=== PATIENT | male | born 1995 ===

== ENCOUNTER 2018-03-02 21:10 | Emergency (ER) | payer SELFPAY ==
[2018-03-02] MEDS ORDERED: Sodium Chloride 0.9% 1,000 ML IV STA ×2 (22:00→23:43)
[2018-03-02 22:31] LABS: VENOUS BLOOD GAS BASE EXCESS 2.8 mmol/L (0.0-2.0); VENOUS BLOOD GAS PCO2 47 mmHg (40-60); VENOUS BLOOD GAS PO2 16 mm/Hg (30-55); VENOUS BLOOD PH 7.39 (7.32-7.43)
[2018-03-02 22:32] LABS: BASO % 0.2 % (0.0-2.0); HEMOGLOBIN 16.5 g/dL (12.0-18.0); LYMPH % 11.7 % (20.0-40.0); MEAN CELL VOLUME 84.6 fl (80.0-94.0); MEAN CORPUSCULAR HGB CONC 33.1 g/dL (33.0-37.0); MEAN PLATELET VOLUME 8.6 fl (7.2-11.7); MONO # 1.3 K/uL (0.0-0.8); MONO % 14.6 % (0.0-10.0); NEUT # 6.4 K/uL (1.8-7.0); NEUT % 73.5 % (50.0-75.0); NRBC % 0.1 % (0.0-0.0); RBC 5.91 Mil/uL (4.40-5.90); RED CELL DISTRIBUTION WIDTH 14.7 % (11.5-14.5); WHITE BLOOD COUNT 8.7 K/uL (4.8-10.8)
[2018-03-02 22:40] LABS: ALB/GLOB RATIO 1.3 (1.0-2.1); ALT/SGPT 24 U/L (21-72); AST/SGOT 39 U/L (17-59); BLOOD UREA NITROGEN 10 mg/dl (9-20); CALCIUM 9.7 mg/dL (8.4-10.2); GFR NON-AFRICAN AMERICAN > 60
--- NOTE | 2018-03-02 22:43 | ED PDOC ---
HPI: Influenza Time Seen by Provider: 03/02/18 21:41 Chief Complaint: Fever History Per: Patient Additional complaint(s):: Pt. states since yesterday he's had cough, congestion, bodyaches, sore throat, fever, chills. Took 1 dose of tylenol at 1300 today without relief. Denies chest pain, SOB, hemoptysis, N/V/D, abd pain, sick contacts, recent travel. Of note, pt. did not get his influenza vaccine today. Past Medical History Vital Signs: Last Vital Signs Temp 102.8 F H 03/02/18 21: Pulse 102 H 03/02/18 21:19 Resp 18 03/02/18 21: BP 151/85 H 03/02/18 21: Pulse Ox 95 03/02/18 21:19 - Family History Family History: States: No Known Family Hx - Home Medications Home Medications: Ambulatory Orders Medication Instructions Recorded Azithromycin [Zithromax] 250 mg PO DAILY #6 tab 03/03/18 Ibuprofen [Motrin Tab] 800 mg PO Q8 PRN #10 tab 03/03/18 Oseltamivir Cap [Tamiflu] 75 mg PO BID #9 cap 03/03/18 - Allergies Allergies/Adverse Reactions: Allergies Allergy/AdvReac Type Severity Reaction Status Date / Time No Known Allergies Allergy Verified 03/03/18 08:11 - Laboratory Results Result Diagrams: 03/02/18 22:24 03/02/18 22:24 Lab Results: pO2 16 mm/Hg (30-55) L 03/02/18 22:27 VBG pH 7.39 (7.32-7.43) 03/02/18 22:27 VBG pCO2 47 mmHg (40-60) 03/02/18 22:27 VBG HCO3 25.0 mmol/L 03/02/18 22:27 VBG Total CO2 29.9 mmol/L (22-28) H 03/02/18 22:27 VBG O2 Sat (Calc) 23.4 % (40-65) L 03/02/18 22:27 VBG Base Excess 2.8 mmol/L (0.0-2.0) H 03/02/18 22:27 VBG Potassium 3.6 mmol/L (3.6-5.2) 03/02/18 22:27 Sodium 132.0 mmol/L (132-148) 03/02/18 22:27 Chloride 97.0 mmol/L (98-107) L 03/02/18 22:27 Glucose 109 mg/dL (75-110) 03/02/18 22:27 Lactate 1.2 mmol/L (0.7-2.1) 03/02/18 22:27 FiO2 21.0 % 03/02/18 22:27 Total Bilirubin 0.5 mg/dl (0.2-1.3) 03/02/18 22:24 AST 39 U/L (17-59) 03/02/18 22:24 ALT 24 U/L (21-72) 03/02/18 22:24 Alkaline Phosphatase 100 U/L (38-126) 03/02/18 22:24 Total Protein 8.7 G/DL (6.3-8.2) H 03/02/18 22:24 Albumin 5.0 g/dL (3.5-5.0) 03/02/18 22:24 Globulin 3.8 gm/dL (2.2-3.9) 03/02/18 22:24 Albumin/Globulin Ratio 1.3 (1.0-2.1) 03/02/18 22:24 - ECG O2 Sat by Pulse Oximetry: 95 - Radiology X-Ray: Read By Radiologist (CXR) X-Ray Interpretation: No Acute Disease - Progress ED Course And Treament: On re-evaluation, pt. in no distress. Reports feeling much better. Repeat vital signs have improved and are WNL. Disposition - Clinical Impression Clinical Impression: Influenza A - Patient ED Disposition Is Patient to be Admitted: No - Disposition Referrals: [facility] [Outside] Disposition: Routine/Home Disposition Time: 01:45 Condition: IMPROVED Additional Instructions: FOLLOW UP WITH [facility] FOR FURTHER EVALUATION RETURN TO ED IMMEDIATELY IF SYMPTOMS WORSEN BARNEY TRONCOSO, thank you for letting us take care of you today. Your provider was Aaliyah Beltran MD and you were treated for DIZZINESS, WEAKNESS, POSS WITHDRAWAL. The emergency medical care you received today was directed at your acute symptoms. If you were prescribed any medication, please fill it and take as directed. It may take several days for your symptoms to resolve. Return to the Emergency Department if your symptoms worsen, do not improve, or if you have any other problems. Please contact your doctor or call one of the physicians/clinics you have been referred to that are listed on the Patient Visit Information form that is included in your discharge packet. Bring any paperwork you were given at discharge with you along with any medications you are taking to your follow up visit. Our treatment cannot replace ongoing medical care by a primary care provider outside of the emergency department. Thank you for allowing the [facility] team to be part of your care today. If you had an X-Ray or CT scan: A Radiologist will review the ED reading if any change in treatment is needed we will contact you. If you had a blood, urine, or wound culture: It will take several days for the results, if any change in treatment is needed we will contact you. If you had an STI test: It will take 48 hours for the results. Please call after 1 week if you have not heard back. Prescriptions: Azithromycin [Zithromax] 250 mg PO DAILY #6 tab Ibuprofen [Motrin Tab] 800 mg PO Q8 PRN #10 tab PRN Reason: fever or pain Oseltamivir Cap [Tamiflu] 75 mg PO BID #9 cap Instructions: Flu, Adult (DC) Forms: [employer] ([place]), [facility] ED School/Work Excuse Print Language: NAURUAN
[2018-03-02 22:46] LABS: URINE BILIRUBIN NEGATIVE (NEGATIVE); URINE BLOOD NEGATIVE (NEGATIVE); URINE CLARITY SLIGHTY-CLOUDY (Clear); URINE COLOR YELLOW (YELLOW); URINE GLUCOSE (UA) NEG (NEGATIVE); URINE LEUKOCYTE ESTERASE NEG Leu/uL (Negative); URINE PROTEIN 100 mg/dL (NEGATIVE)
[2018-03-02 22:56] LABS: BARBITURATES, UR NEGATIVE (NEGATIVE); BENZODIAZEPINES, UR NEGATIVE (NEGATIVE); OPIATES, UR NEGATIVE (NEGATIVE); PHENCYCLIDINE, UR NEGATIVE (NEGATIVE)
[2018-03-03 01:46] VITALS: BP 120/79; PULSE 74; RESP 14; TEMP 99.3; O2SAT 95
--- NOTE | 2018-03-03 12:35 | RAD ---
Date of service: 03/02/2018 HISTORY: cough COMPARISON: No prior. TECHNIQUE: Chest PA and lateral FINDINGS: LUNGS: No active pulmonary disease. PLEURA: No significant pleural effusion identified. No pneumothorax apparent. CARDIOVASCULAR: No aortic atherosclerotic calcification present. Normal cardiac size. No pulmonary vascular congestion. OSSEOUS STRUCTURES: No significant abnormalities. VISUALIZED UPPER ABDOMEN: Normal. OTHER FINDINGS: Elevated left hemidiaphragm. IMPRESSION: No active disease.
== END 2018-03-03 02:11 | disposition home or self-care (01) ==
LOC: MERGE 21:10 → H.ER 21:10
DX: J09.X2 Influenza due to identified novel influenza A virus with other respiratory manifestations (principal)
CPT/HCPCS: 71046; 80053; 81003; 82803; 85025; 87040; 87070; 87430; 87804; 96360; 96361; 99284; G0480; J7030